=== PATIENT | male | born 1980 | race Caucasian/White ===

== ENCOUNTER 2024-12-30 15:16 | Emergency (ER) | payer BC, SELFPAY ==
[2024-12-30 15:25] VITALS: BP 177/103; BP 181/101; PULSE 82; RESP 20; TEMP 36.6; O2SAT 95; BMI 31.4
--- NOTE | 2024-12-30 15:55 | XR_ITS ---
Examination: PA chest single view TECHNIQUE: Upright PA chest single view Date and time: December 30, 2024, 1636 hours INDICATIONS: Chest pain today FINDINGS: Normal heart size The lungs are clear. The osseous structures are intact IMPRESSION: No active disease
--- NOTE | 2024-12-30 15:55 | EKG_ITS ---
[facility] Test Date: 2024-12-30 Pat Name: LINSEY FLORENTINO Department: Room: - Gender: Male Head Of Business Development: : 1980 Requested By: Claudia Moran ([facility]) Xavier Order Number: [id number] Reading MD: Claudia Moran ([facility]) Xavier Measurements Intervals Jackson Rate: 72 P: 66 UT: 169 QRS: 59 QRSD: 98 T: 34 QT: 391 QTc: 429 Interpretive Statements SINUS RHYTHM No previous ECG available for comparison /store/S0/[id number]/ecg/[id number].pdf
--- NOTE | 2024-12-30 15:55 | PD.EDRME ---
Rapid Medical Screening Exam RME Arrival date/time: 12/30/24 15:16 This is a 44-year-old male who presents to the emergency department sent over by his PCP for evaluation due to worsening kidney function. History of unilateral renal agenesis I have greeted and performed a focused initial assessment of this patient. Initial appropriate labs ordered at this time. A comprehensive ED assessment and evaluation of the patient and analysis of all test and completion of medical decision making process will be conducted by additional ED provider. Chief Complaint: Recheck/Abnormal Lab/Rx Time Seen by Provider: 12/30/24 15:25 Vital signs: Vital Signs Temperature 97.8 F 12/30/24 15:25 Pulse Rate 82 12/30/24 15:25 Respiratory Rate 20 12/30/24 15:25 Blood Pressure 181/101 H 12/30/24 15:25 Pulse Oximetry (%) 95 12/30/24 15:25 Oxygen Delivery Method Room Air 12/30/24 15:25
--- NOTE | 2024-12-30 15:57 | XR_ITS ---
Examination: Retroperitoneal ultrasound, complete Technique: Multiple high resolution grayscale images of the retroperitoneum obtained, including kidneys and bladder. Exam date and time:December 30, 2024 at 1416 hours INDICATIONS: History left renal agenesis, right flank pain 6 days FINDINGS: Right kidney 14.2 cm cortex 1.9 cm Moderate right hydronephrosis No renal calculi No bladder mass or bladder calculi Bladder prevoid volume 90 cc postvoid volume 0 cc No prostatomegaly IMPRESSION: Moderate right hydronephrosis, consider CT scan abdomen pelvis without intravenous contrast follow-up to assess etiology of the hydronephrosis
[2024-12-30 16:11] LABS: Basophils # (Auto) 0.0 Thou/mm3 (0.0-0.2); Basophils % (Auto) 0 % (0-2.5); Eosinophils # (Auto) 0.1 Thou/mm3 (0.0-0.5); Eosinophils % (Auto) 1 % (0-10); Hematocrit 34.0 % (41.0-53.0); Hemoglobin 12.8 g/dL (13.5-16.0); Immature Granulocytes Auto 0.02 Thou/mm3 (0.00-0.00); Lymphocytes # (Auto) 1.2 Thou/mm3 (1.0-4.8); Lymphocytes % (Auto) 14 % (10-50); Mean Corpuscular HGB Conc 37.6 g/dl (31.0-37.0); Mean Corpuscular Hemoglobin 30.1 pg (25.0-35.0); Mean Corpuscular Volume 80 fL (80-100); Monocytes # (Auto) 0.8 Thou/mm3 (0.0-0.8); Monocytes % (Auto) 9 % (0-12); Neutrophils # (Auto) 6.4 Thou/mm3 (1.8-7.7); Neutrophils % (Auto) 76 % (37-80); Nucleated Red Blood Cell # 0.00 Thou/mm3 (0.00-0.00); Nucleated Red Blood Cell % 0 /100 WBC (0); Platelet Count 168 Thou/mm3 (140-440); RDW Standard Deviation 34.9 fL (35.1-43.9); Red Blood Count 4.25 Miln/mm3 (4.50-5.90); White Blood Count 8.5 Thou/mm3 (3.8-10.6)
[2024-12-30 16:24] LABS: INR 1.0 (0.9-1.3); Prothrombin Time 11.0 Seconds (9.0-12.2)
[2024-12-30 16:31] LABS: B-Type Natriuretic Peptide 316 pg/mL (0-100)
[2024-12-30 16:33] LABS: Alanine Aminotransferase 37 U/L (10-49); Albumin, Serum 4.3 gm/dL (3.5-5.0); Albumin/Globulin Ratio 1.8 (1.2-2.2); Alkaline Phosphatase 82 U/L (46-116); Anion Gap 15 (7-16); Aspartate Amino Transferase 31 U/L (0-34); BUN/Creatinine Ratio 8 Ratio (12-20); Bilirubin,Total 0.7 mg/dL (0.3-1.2); Blood Urea Nitrogen 53 mg/dL (9-23); Calcium 9.3 mg/dL (8.3-10.6); Calcium (Corrected) 9.3 mg/dL (8.5-10.1); Carbon Dioxide 20.2 mMol/L (20.0-31.0); Chloride 103 mMol/L (98-107); Creatinine (Component) 6.4 mg/dL (0.6-1.3); Estimated Creatinine Clearance 16.0 mL/min (>60); Globulin 2.4 gm/dL (2.3-3.5); Glucose 94 mg/dL (74-106); Lipase 49 U/L (12-53); Magnesium 2.4 mg/dL (1.6-2.6); Osmolality,Calculated 290 (275-295); Potassium 4.2 mMol/L (3.4-5.1); Sodium 138 mMol/L (136-145); Total Protein 6.7 gm/dL (5.7-8.2); Troponin I < 0.020 ng/mL (0.0-0.045); eGFR 10 See Note
--- NOTE | 2024-12-30 17:11 | XR_ITS ---
Examination: CT abdomen and pelvis without contrast. Coronal 3-D reconstructions. Sagittal 2-D reconstructions. Date and time of exam:December 30, 2024, 1723 hours INDICATIONS: Onset flank pain today CTDI: vol (mGy): 8.68 DLP: (mGycm): 548 Technique: Axial images of the abdomen have been obtained, 3 mm slice thickness Intravenous contrast material has not been administered. Low dose protocols were performed. One or more of the following dose reduction techniques were used; automated exposure control, adjustment of the mA and/or KV according to patient size, use of iterative reconstruction technique. Findings: No focal liver or splenic lesions No gallstones No pancreatic mass 2 mm lower pole right renal calculus Moderate right hydronephrosis with perinephric stranding, dilated ureter secondary to 5 mm proximal to mid right ureteral calculus Normal appendix Left renal agenesis No bowel obstruction Trace free fluid in the pelvis No prostatomegaly Contracted urinary bladder, urinary bladder wall thickening of the 10 mm IMPRESSION: Moderate right hydronephrosis secondary to a 5 mm proximal to mid right ureteral calculus Left renal agenesis Cystitis pattern
--- NOTE | 2024-12-30 17:14 | PD.EDABDPN ---
ED Abdominal Pain RME/HPI General Chief Complaint: Recheck/Abnormal Lab/Rx Stated complaint: Kidney function low per M.D. Time seen by provider: 12/30/24 15:25 Arrival date/time: 12/30/24 15:16 This is a case of 44-year-old male with history of multiple kidney stone and unilateral renal agenesis came in in the emergency room due to right flank pain for 5 days radiating to the abdomen with nausea vomiting denies any constipation diarrhea patient was seen by PCP and was sent here for worsening kidney function Limitations: no limitations RME / HPI RME / HPI narrative: 12/30/24 15:16 This is a 44-year-old male who presents to the emergency department sent over by his PCP for evaluation due to worsening kidney function. History of unilateral renal agenesis I have greeted and performed a focused initial assessment of this patient. Initial appropriate labs ordered at this time. A comprehensive ED assessment and evaluation of the patient and analysis of all test and completion of medical decision making process will be conducted by additional ED provider. Related Data Allergies Allergy/AdvReac Type Severity Reaction Status Date / Time No Known Drug Allergies Allergy Verified 12/30/24 15:22 Review of Systems Review of Systems Systems Reviewed: All systems reviewed, normal except as documented Constitutional Constitutional: Reports system reviewed and no additional complaints, except as documented, Reports as per HPI, Denies chills and Denies fever(s) Cardiovascular Cardiovascular: Reports system reviewed and no additional complaints, except as documented, Reports as per HPI, Denies chest pain and Denies dyspnea Respiratory Respiratory: Reports system reviewed and no additional complaints, except as documented, Reports as per HPI and Denies dyspnea Gastrointestinal Gastrointestinal: Reports system reviewed and no additional complaints, except as documented, Reports as per HPI, Reports abdominal pain, Denies diarrhea, Reports nausea and Reports vomiting Genitourinary Genitourinary: Reports system reviewed and no additional complaints, except as documented, Reports as per HPI, Denies hematuria, Denies penile discharge, Denies testicular pain, Denies urinary frequency, Denies urinary hesitancy, Denies urinary incontinence and Denies urinary urgency Neurologic Neurologic: Reports system reviewed and no additional complaints, except as documented and Reports as per HPI Past Medical History Social History SMOKING STATUS: Never smoker ED Exam General Limitations: Present no limitations General appearance: Present alert, in no apparent distress and other (Patient is awake alert oriented not in distress not toxic looking well-hydrated well-nourished) Head Head exam: Present atraumatic Eye Eye exam: Present normal appearance, PERRL and EOMI ENT ENT exam: Present normal exam, normal oropharynx and mucous membranes moist Neck Neck exam: Present normal inspection, full ROM and trachea midline Chest Chest inspection: Present normal inspection and symmetric chest wall rise; Absent tenderness Respiratory Respiratory exam: Present normal lung sounds bilaterally; Absent respiratory distress, wheezes, stridor, accessory muscle use or prolonged expiratory phase Cardiovascular Cardiovascular exam: Present regular rate, normal rhythm and normal heart sounds; Absent bradycardia, tachycardia, irregular rhythm, systolic murmur or diastolic murmur Abdominal Exam Abdominal exam: Present soft, tenderness (Tenderness on the right lower quadrant and right flank positive right CVA tenderness) and normal bowel sounds; Absent distention, guarding, rebound, rigidity, diminished bowel sounds, hyperactive bowel sounds, hypoactive bowel sounds, organomegaly, psoas sign, obturator sign, Encarnacion's sign, Rovsing's sign, tenderness at McBurney's Point, ascites or hernia Extremities Exam Extremities exam: Present normal inspection and full ROM Back Exam Back exam: Present normal inspection and full ROM Neurological Exam Neurological exam: Present alert, oriented X3, CN II-XII intact, normal gait and reflexes normal; Absent motor sensory deficit Psychiatric Psychiatric exam: Present normal affect and normal mood Skin Skin exam: Present warm, dry, intact and normal color Course Quality Measures none Orders Category Date Time Status EKG (ED ONLY) *Do not use* NOW Care 12/30/24 15:55 Completed Insert IV STAT Care 12/30/24 15:[address] abdomen pelvis wo con Stat Exams 12/30/24 17:11 Completed EKG (ED Only) Stat Exams 12/30/24 15:55 Draft US renal BI Stat Exams 12/30/24 15:57 Completed XR chest 1V portable Stat Exams 12/30/24 15:55 Completed B-Type Natriuretic Peptide Stat Lab 12/30/24 16:02 Completed CBC Stat Lab 12/30/24 16:02 Completed Comprehensive Metabolic Panel Stat Lab 12/30/24 16:02 Completed Lipase Stat Lab 12/30/24 16:02 Completed Magnesium Stat Lab 12/30/24 16:02 Completed Prothrombin Time with INR Stat Lab 12/30/24 16:02 Completed Troponin I Stat Lab 12/30/24 16:02 Completed Urinalysis Stat Lab 12/30/24 18:16 Completed Morphine Inj Med 12/30/24 21:42 Once 4 mg IM X1 ONE Ondansetron Odt [Zofran Odt] Med 12/30/24 21:42 Once 4 mg PO X1 ONE Vital Signs Vital signs: Vital Signs Temperature 97.8 F 12/30/24 15:25 Pulse Rate 82 12/30/24 15:25 Respiratory Rate 20 12/30/24 15:25 Blood Pressure 181/101 H 12/30/24 15:25 Pulse Oximetry (%) 95 12/30/24 15:25 Oxygen Delivery Method Room Air 12/30/24 15:25 Patient is afebrile not tachycardic not tachypneic BP is 181/101 due to pain pulse ox is 95% in room air normal Abdominal Pain MDM MDM Narrative MDM Narrative:: This is a case of 44-year-old male with history of multiple kidney stone and unilateral renal agenesis came in in the emergency room due to right flank pain for 5 days radiating to the abdomen with nausea vomiting denies any constipation diarrhea patient was seen by PCP and was sent here for worsening kidney function physical examination patient is awake alert oriented not in distress nontoxic looking well-hydrated well-nourished lungs sound is clear no crackles no rales no retraction no stridor heart normal rate regular rhythm no murmur abdominal exam noted mild tenderness in the right flank right lower quadrant with positive CVA tenderness no guarding no rebound no rigidity negative psoas negative straight or negative Rovsing's negative McBurney's negative Encarnacion sign negative the rest of the physical examination and neurological exam is normal and unremarkable blood test showed no leukocytosis no anemia liver function is normal kidney function is abnormal noted BUN is 54 creatinine is 6.4 EGFR is 10 patient troponin is negative EKG showed sinus rhythm 72 BNP showed 316 probably due to renal failure patient CT scan of the abdomen pelvis showed moderate right hydronephrosis 5 mm proximal ureteral stone urinalysis is normal patient was given morphine for pain and Zofran for nausea vomiting I spoke to Dr Lopez nephrology on-call discussed patient condition history and physical examination related to blood test and EKG states that it needs to fix first the obstructive ureteral stone and hydronephrosis before treating the patient as kidney failure does patient need to be transferred to higher level of care which need urologist I spoke to Dr. Prather ER doctor in [facility] discussed patient condition history and physical examination relayed the blood test and the imaging result agreed that the patient need to be transferred and need to see the urologist for possible procedure for obstructive ureteral stone with hydronephrosis and accept patient care discussed with the patient the treatment plan and transfer and agreed Patient data External records reviewed:: [facility] previous records Clinical information provided by:: patient Social determinants that could affect healthcare access:: none Patient has the following chronic illnesses:: None How is presenting disease/condition affected by chronic disease/condition?: no chronic disease Evaluation data The following diagnostics were reviewed and interpreted by me:: lab results and radiology exam(s) Lab and/or radiology exams considered but not ordered:: Reviewed Interpretation Summary: Reviewed Medications / Prescriptions Medications or Prescriptions considered but not ordered:: Given Medication administrations:: Given Consultations Consultation(s) initiated? (list below): No Diagnosis Differential diagnosis abdominal pain: abdominal pain, acute appendicitis and calculus of kidney Most likely diagnosis given after review of the tests above:: Obstructive ureteral stone with hydronephrosis acute renal failure Admission Indicated Admission indicated?: indicated Explain why admission is indicated or not indicated:: Obstructive ureteral stone with hydronephrosis with hydronephrosis acute renal failure Admission Request Was there a request for admission?: Yes Admission Attestation Admission request attestation: Discussed case with [] from Hospitalist service regarding admission. Discussed patients ED course, exam findings, labs, and radiology results. The Hospitalist [agrees,declines] to accept the patient for admission. Disposition Plan Disposition Plan: Transfer Discharge Plan Plan Patient Disposition: [facility] Pt Being Transferred to: [facility] Service Needed for Transfer: Urology Discharge Disposition comment: Obstructive ureteral stone Patient condition on transfer: Stable Prescriptions/Referrals Referrals: Mohinder Montanez MD [Primary Care Provider] - In 1 week Problem List Clinical Impression: Acute right flank pain, Hydronephrosis with renal and ureteral calculous obstruction, Acute renal failure Patient/Caregiver Discharge Instructions Education Materials: Kidney Failure Self Care, Understanding Hydronephrosis, ED Kidney Stone w/ Colic Print Language: [place]errat[place] Stand Alone Forms: Estelle Award Info., Patient Portal Info Letter PA/FAILURE ANALYSIS TECHNICIAN Supervising Physician PA/MELVIN Supervising Physician: dr drew
[2024-12-30 17:39] VITALS: BP 160/90; BP 180/88; PULSE 55; RESP 17; TEMP 36.9; O2SAT 98
[2024-12-30 19:03] LABS: Collection Type, Urine Voided
[2024-12-30 19:09] LABS: Bilirubin,Urine Negative (Negative); Blood,Urine Trace (Negative); Clarity,Urine Clear (Clear/Hazy); Color,Urine Lt-Yellow (Lt Yel-Yel); Glucose, Urine Negative (Negative); Ketones,Urine Negative (Negative); Leukocyte Esterase,Urine Negative (Negative); Nitrite,Urine Negative (Negative); PH,Urine 5.5 (5.0-7.0); Protein,Urine Negative (Neg - Trace); RBC,Urine 2 /hpf (0-3); Specific Gravity,Urine 1.015 (1.001-1.035); Squamous Epithelial Cell,Urine < 1 /hpf (0-5); Urobilinogen,Urine Negative mg/dL (0.0-1.0); WBC,Urine 7 /hpf (0-5)
[2024-12-30 20:31] VITALS: BP 160/90; PULSE 71; RESP 17; TEMP 37.1; O2SAT 96
[2024-12-30 21:40] VITALS: BP 134/76; PULSE 76; RESP 18; TEMP 36.6; O2SAT 97
[2024-12-30] MEDS: ONDANSETRON ODT 4 MG TABRAP PO (21:55)
--- NOTE | 2024-12-30 21:56 | PC.NURSE ---
YEHUDA FROM THE [facility] CALLED AND THIS PT IS ACCEPTED TO [facility] BY DR. MCWILLIAMS. THEY ARE PENDING A BED ASSIGNMENT AT [facility].
--- NOTE | 2024-12-30 21:57 | PC.NURSE ---
[facility] CONTACTED T SENT.
[2024-12-30] MEDS: MORPHINE SULF INJ 10 MG/ML VIAL 4 MG IVP (21:58)
--- NOTE | 2024-12-30 23:58 | PC.NURSE ---
THIS PT IS GOING TO [address] AT [facility] AND NUMBER FOR REPORT IS [phone] TO REVA DYER. YEHUDA WAS THE FACILITY REP I SPOKE WITH FOR ACCEPTING.
[2024-12-31 00:09] VITALS: BP 138/76; PULSE 73; RESP 21; O2SAT 95
[2024-12-31 00:44] VITALS: BP 138/76; PULSE 69; RESP 24; TEMP 36.4; O2SAT 92
--- NOTE | 2024-12-31 00:44 | PC.NURSE ---
called and gave report to chiquita at [facility]. all questions answered.
[2024-12-31] MEDS: HYDROmorphone INJ 2 MG/ML VIAL 0.5 MG IVP (01:18)
--- NOTE | 2024-12-31 01:29 | PC.NURSE ---
ems here to transport pt to [facility]. report given to dragline mechanic noel.
== END 2024-12-31 01:32 | disposition short-term general hospital (02) ==
PROVIDERS: Nurse Practitioner Family; Nurse Practitioner Primary Care; Emergency Provider Emergency Medicine; PCP Family Medicine
DX: N17.9 Acute kidney failure, unspecified (principal); N13.2 Hydronephrosis with renal and ureteral calculous obstruction; R07.9 Chest pain, unspecified; Q60.0 Renal agenesis, unilateral; Z75.1 Person awaiting admission to adequate facility elsewhere
CPT/HCPCS: 36415; 71045; 74176; 76770; 80053; 81001; 83690; 83735; 83880; 84484; 85025; 85610; 93005; 96372; 96374; 96375; 99284; J1171; J2270; Q0162